=== PATIENT | male | born 1980 | race Hispanic/Latino ===

== ENCOUNTER 2018-02-13 22:51 | Emergency (ER) | payer OTHER ==
[2018-02-13] MEDS ORDERED: MORPHINE SULFATE 8 MG/ML VIAL ONE (23:54)
[2018-02-13] MEDS ORDERED: ONDANSETRON ODT 4 MG TAB ONE (23:56)
== END 2018-02-14 00:15 | disposition home or self-care (01) ==
LOC: EDH 22:51
DX: S86.811A Strain of other muscle(s) and tendon(s) at lower leg level, right leg, initial encounter (principal); Z88.8 Allergy status to other drugs, medicaments and biological substances; X58.XXXA Exposure to other specified factors, initial encounter; Y93.64 Activity, baseball; Y92.39 Other specified sports and athletic area as the place of occurrence of the external cause; Y99.8 Other external cause status
CPT/HCPCS: 96372; 99283; J2270